=== PATIENT | female | born 1940 | race Caucasian/White ===

== ENCOUNTER 2017-07-29 02:17 | Inpatient (IN) | payer MEDICARE ==
[2017-07-29 03:21] LABS: ALT (SGPT) 39 U/L (8-55); AST (SGOT) 42 U/L (5-34); Albumin 3.8 g/dL (3.4-4.8); Alkaline Phosphatase 133 U/L (40-150); Anion Gap 12 mmol/L (10-20); BUN (Urea Nitrogen) 26 mg/dL (9.8-20.1); Bilirubin, Total 0.4 mg/dL (0.2-1.2); Calc. Creatinine Clearance 0 mL/min (70-130); Calcium 9.8 mg/dL (7.8-10.44); Carbon Dioxide 22 mmol/L (23-31); Chloride 107 mmol/L (98-107); Estimated GFR-MDRD 37; Globulin 3.9 g/dL (2.4-3.5); Glucose 176 mg/dL (83-110); Potassium 4.3 mmol/L (3.5-5.1); Protein, Total 7.7 g/dL (6.0-8.3); Sodium 137 mmol/L (136-145)
[2017-07-29 03:25] LABS: CKMB 2.4 ng/mL (0-6.6); Troponin I Less than 0.010 ng/mL (< 0.028)
[2017-07-29 03:30] LABS: Band 5 % (5-11); Hemoglobin 13.2 g/dL (12.0-16.0); Lymphocytes 8 % (21-51); MDiff Complete? YES; Mean Corpuscular Hemoglobin 32.8 pg (27.0-31.0); Mean Corpuscular Volume 96.4 fl (81.0-99.0); Mean Platelet Volume 7.2 fL (7.4-10.4); Monocytes 2 % (0-10); Neutrophil 85 % (42-75); PLT Morphology Comment Appears Adequate; Platelet Count 248 thou/uL (130-400); RBC Distribution Width 12.6 % (11.5-14.5); RBC Morphology Normal; Red Blood Cell (RBC) Count 4.01 mill/uL (4.20-5.40); White Blood Cell (WBC) Count 10.6 thou/uL (4.8-10.8)
[2017-07-29] MEDS ORDERED: Piperacillin/Tazobactam 4.5 GM VIAL ONE (03:55)
[2017-07-29] MEDS ORDERED: Furosemide 40 MG/4 ML VIAL ONE (03:55)
--- NOTE | 2017-07-29 06:11 | HP ---
DATE OF ADMISSION: 07/29/2017 PRIMARY CARE PROVIDER: Dr. Bassett out of [place], [place]. CHIEF COMPLAINT: Cough and shortness of breath. HISTORY OF PRESENT ILLNESS: This is a 77-year-old female who presents to [facility] Emergency Department, complaining of increased shortness of breath over the last 12 to 24 hours. The patient states she was recently admitted to [facility] in [place], diagnose d with pneumonia and treated for approximately 24 hours with IV antibiotics. The patient states she was discharged home with Augmentin and complained of increasing shortness of breath during that timef rame from discharge until the admission in the emergency room. The patient admits to difficulty lyin g flat, dry cough, no fever with a persistent cough. The patient denied any specific lower extremity swelling or weight gain and denies any known history of congestive heart failure. The patient does state she had a significant coronary history including myocardial infarction, coronary artery bypass grafting, atrial fibrillation, and undergoing a Watchman device and pacemaker placement in the past. The patient states she has been compliant with her medication regimen and takes aspirin and Plavix o n a daily basis. The patient consistently denies any chills, rigors, exposure history or family memb ers with similar symptoms. The patient denies any prior history of pneumonia. The patient admits to some difficulty taking a deep breath and feels like this will make her cough more. The patient cristian es any jaw or left arm discomfort. The patient denies any recent trauma, injury, nausea, vomiting, o r diarrhea. In the emergency room, the patient underwent general evaluation including chest imaging showing pulmonary edema and questionable infiltrate. The patient received IV Lasix 40 mg x1 dose as well as Levaquin 750 mg x1 and vancomycin 1 gram. The patient also received Zosyn 4.5 grams x1 dose. PAST MEDICAL HISTORY: 1. Coronary artery disease. 2. History of myocardial infarction. 3. History of TIAs. 4. History of intracranial hemorrhage. 5. Chronic atrial fibrillation with variable rate, status post pacemaker placement. 6. Hypothyroidism. 7. Diabetes mellitus type 2. 8. Hypertension. 9. Hyperlipidemia. PAST SURGICAL HISTORY: 1. Status post pacemaker placement. 2. Status post Watchman procedure. 3. Status post coronary artery bypass grafting. CURRENT MEDICATIONS: 1. Plavix 75 mg 1 tab p.o. daily. 2. Enteric-coated aspirin 81 mg 1 tab p.o. daily. 3. Glipizide 10 mg 1 tab p.o. daily. 4. Glargine insulin 15 units subcutaneously at bedtime. 5. Isosorbide mononitrate 30 mg p.o. daily. 6. Levothyroxine 75 mcg 1 tab p.o. daily. 7. Lisinopril 2.5 mg 1 tab p.o. daily. 8. Simvastatin 40 mg p.o. at bedtime. 9. Januvia 25 mg 1 tab p.o. daily. 10. Betapace 40 mg p.o. b.i.d. ALLERGIES: No known drug allergies. FAMILY HISTORY: Positive for hypertension and coronary artery disease. SOCIAL HISTORY: Patient is and resides near [place], [place]. Retired. Remote tobacco use, quitting in 2001. No alcohol or illicit drug use. Functional of all activities of daily living. REVIEW OF SYSTEMS: The following complete review of systems was negative, unless otherwise mentioned in the HPI or below: Constitutional: Weight loss or gain, ability to conduct usual activities. Sk in: Rash, itching. Eyes: Double vision, pain. ENT/Mouth: Nose bleeding, neck stiffness, pain, te nderness. Cardiovascular: Palpitations, dyspnea on exertion, orthopnea. Respiratory: Shortness of breath, wheezing, cough, hemoptysis, fever or night sweats. Gastrointestinal: Poor appetite, abdom inal pain, heartburn, nausea, vomiting, constipation, or diarrhea. Genitourinary: Urgency, frequenc y, dysuria, nocturia. Musculoskeletal: Pain, swelling. Neurologic/Psychiatric: Anxiety, depressio n. Allergy/Immunologic: Skin rash, bleeding tendency. PHYSICAL EXAMINATION: VITAL SIGNS: On admission, blood pressure 130/89, pulse 113, respiratory rate 22, temperature 97.4 d egrees Fahrenheit, O2 saturation 96% on 2 liters per minute by nasal cannula. GENERAL APPEARANCE: This is a 77-year-old female, alert and oriented x3, pleasant, respons felton, in no acute distress. HEENT: Pupils are equal, round, and reactive to light and accommodation. Extraocular muscles are in tact. No scleral icterus, no conjunctival injection. Nares patent. OP is clear. Teeth in good rep air. Oral mucosa dry. NECK: Supple. No cervical adenopathy, no thyromegaly, no carotid bruits, no JVD appreciated. Cervi yariel spine with full active and passive range of motion. No meningeal signs appreciated. CHEST: Crackles bilaterally in the basilar segments. Diminished airflow in the bases. CARDIOVASCULAR: S1, S2 with irregular rate and rhythm. Tachycardic. No murmur or rub noted. ABDOMEN: Rounded, soft, nontender, nondistended. Bowel sounds are positive in all four quadrants. No hepatosplenomegaly, no abdominal bruits, no rebound or guarding appreciated. EXTREMITIES: Warm and dry with fair turgor. No clubbing, cyanosis, or asymmetric edema appreciated. Pulses palpable distally at the dorsalis pedis, posterior tibial, and popliteal arteries bilaterall y. Capillary refill less than 2 seconds. NEUROLOGIC: Cranial nerves II through XII are grossly intact. No focal or lateralizing signs apprec iated. PERTINENT LABORATORY AND X-RAY FINDINGS: Sodium 137, potassium 4.3, chloride 107, CO2 of 22, BUN 26, creatinine 1.40, estimated GFR of 37, glucose 176. Lactic acid level 1.7, calcium 9.8, AST 42, ALT 39, alkaline phosphatase 133, troponin I negative x1. BNP 1875, albumin 3.8. CBC showed a white blo od cell count of 10.6, hemoglobin 13, hematocrit 39, platelet count 248,000 with 85% neutrophils. D- dimer 1.71. Portable chest x-ray dated 07/29/2017 shows bilateral pulmonary edema, right greater steph n left lung field. Pacemaker device noted in the left chest wall. Cardiomegaly noted. EKG dated by my interpretation shows atrial fibrillation with rapid ventricular response with heart ra erwin in the 110s. Attenuated R waves noted in the precordial leads. Left bundle-branch block pattern noted. Left axis deviation. ASSESSMENT AND PLAN: 1. Acute congestive heart failure. The patient will be admitted to the telemetry unit. Appears to be new onset heart failure. We will obtain 2D transthoracic echocardiogram for accurate ejection fra ction. Last 2D transthoracic echocardiogram in 08/2016 showing ejection fraction in the 40-45% range . We will consult Cardiology Service for evaluation. Check TSH and magnesium level. Continue Lasix 40 mg IV b.i.d. Repeat BNP in the a.m. 2. Acute hypoxic respiratory failure. Suspect secondarily to #1. Continue oxygen supplementation t o maintain O2 saturations greater than or equal to 90%. Continue diuretic therapy as outlined in #1. 3. Community-acquired pneumonia. Questionable diagnosis. Given the lack of fever and leukocytosis. We will continue Levaquin 500 mg IV q.24 hours. Continue to monitor clinical response. Suspect ma in presentation related to pulmonary edema and not an acute infectious process. 4. Chronic kidney disease, stage 3. Avoid nephrotoxic agents and contrast media. Serial creatinine monitoring. Hold lisinopril. 5. Atrial fibrillation with rapid ventricular response. We will resume patient's home medication re gimen to include metoprolol and Betapace. Consult Cardiology Service for further recommendations. P atient not deemed an appropriate anticoagulation candidate due to history of intracranial bleed. Con tinue aspirin and Plavix. Consider Cardizem intravenously if rapid ventricular response persists aft er resuming home medication regimen. 6. Prophylaxis. Sequential compression devices while in bed. Pepcid 20 mg p.o. b.i.d. 7. Code status is FULL. Surrogate medical decision maker is patient's spouse.
[2017-07-29] MEDS ORDERED: Acetaminophen 500 MG TAB PO PRN (07:11)
[2017-07-29] MEDS ORDERED: Ondansetron ODT 4 MG TAB PO PRN (07:11)
[2017-07-29] MEDS ORDERED: Dextrose 50% Abboject 50 ML SYRINGE SLOW IVP PRN (07:11)
[2017-07-29] MEDS ORDERED: HumaLOG 300 UNITS/3 ML VIAL SC PRN ×2 (07:11)
[2017-07-29] MEDS ORDERED: Dextrose 5% in Water 1,000 ML IV PRN (07:11)
[2017-07-29] MEDS ORDERED: cloNIDine 0.1 MG TAB PO PRN (07:11)
[2017-07-29] MEDS ORDERED: hydrALAZINE 20 MG/ML VIAL SLOW IVP PRN (07:11)
[2017-07-29] MEDS ORDERED: Ondansetron HCl/PF 4 MG/2 ML Vial IVP PRN (07:11)
[2017-07-29] MEDS ORDERED: Furosemide 40 MG/4 ML VIAL SLOW IVP SCH ×2 (07:45→14:00)
--- NOTE | 2017-07-29 08:56 | RAD ---
UPRIGHT PORTABLE CHEST 1 VIEW: HISTORY: A 77-year-old female with a history of dyspnea. FINDINGS: Postop midline sternotomy. Left ICD. Bilateral interstitial and alveolar parenchymal changes throug hout both lungs with bilateral pleural effusions greater on the right side. No cardiomegaly. IMPRESSION: Evidence of bilateral vascular congestion and bilateral linear interstitial parenchymal changes as we ll as some more confluent alveolar parenchymal changes in the right lung. Bilateral pleural effusion s. Certainly, bilateral pneumonia is a strong consideration, particularly on the right side. There may as well be some component of interstitial edema and congestive heart failure. Continue short-ter m followup. POS: OFF
[2017-07-29] MEDS: Famotidine 20 MG TAB PO SCH (09:57)
[2017-07-29] MEDS: Aspirin 81 mg Enteric Coated Tablet PO SCH (09:57)
[2017-07-29] MEDS ORDERED: Amiodarone 200 MG TAB PO SCH (16:45)
[2017-07-29] MEDS ORDERED: Digoxin 0.5 MG/2 ML AMP SLOW IVP SCH (20:30)
[2017-07-29] MEDS: Simvastatin 20 MG TAB PO SCH (20:32)
[2017-07-29] MEDS: Doxycycline 100 MG CAP PO SCH (20:32)
[2017-07-29] MEDS: Metoprolol Tartrate 25 MG TAB PO SCH (20:42)
[2017-07-29] MEDS ORDERED: cefTRIAXone\\ROCEPHIN 1 GM in Sodium Chloride 0.9% 100 ML IVPB SCH (21:00)
[2017-07-29] MEDS ORDERED: Amlodipine 5 MG TAB PO SCH (21:00)
[2017-07-29] MEDS ORDERED: cefTRIAXone\\ROCEPHIN 1 GM, Syringe 0.4 ML in Sterile Water 9.6 ML SLOW IVP SCH (21:00)
--- NOTE | 2017-07-29 23:26 | CON ---
DATE OF ADMISSION: 07/29/2017 DATE OF CONSULTATION: 07/29/2017 INDICATION FOR CONSULTATION: A 77-year-old female with what appears to be pneumonia, shortness of br eath, atrial fibrillation, history of coronary artery disease, status post pacemaker insertion, statu s post bypass surgery with a history of atrial fibrillation with rapid ventricular response, for what we have seen the patient this time. This is very unfortunate 77-year-old female who has had a long cardiac history. She suffered a myocardial infarction in 2001. She underwent bypass surgery also at that time at [facility] in [place]. Since that time, she has had a pacemaker insertion. Tita lai has had history of atrial fibrillation with rapid ventricular response. She has had 2 cardioversio ns. She has also had a Watchman device placed, but she has had no atrial fibrillation ablation that she is aware of. She does have hypertension and has been doing relatively well except that she recen tly has a pneumonia. She was in the hospital in [place] and was just released this past Saturday, but then on Saturday felt okay, but on Saturday, she started getting more short of breath and presented to the emergency room here and was admitted. She does have evidence of possible right-sided pneumonia e ither congestive heart failure symptoms or echocardiogram was performed today shows ejection fraction of 15% to 20% with severe mitral valve regurgitation. She apparently been told in the past that she did have a decrease in her ejection fraction and there had been some discussion about possibly proce eding with an ablation or an upgrade to either an AICD or a biventricular pacemaker. She has been fo llowed by boat operator in [place] rather closely. She denies any chest pain, although she takes a de ep breath. Her cardiac enzymes are unremarkable. She has been placed on antibiotics and is feeling somewhat better this evening. PAST MEDICAL HISTORY: Significant for, 1. Coronary artery disease and bypass surgery, history of myocardial infarction. She has had a hist ory of intracranial hemorrhage and she is unable to take other oral anticoagulation, but does take Pl avix. She has had TIAs. She has apparently history of chronic atrial fibrillation, but she has been released from [place], the last admission had been on amiodarone. It would be my suspicion that the re may be trying to load her with amiodarone and then try again to cardiovert her prior to proceeding with possible ablation of her atrial fibrillation. We will need to control the heart rate at this t luis. 2. Type 2 diabetes. 3. Hypothyroidism. 4. Hypertension. 5. Hyperlipidemia. PAST SURGICAL HISTORY: She has had bypass surgery. She has had pacemaker insertion. She has had a Watchman procedure placed in the left atrial appendage and she has had 2 cardioversions for her atria l fibrillation, both which occurred this year. She has had the pacemaker in for couple of years. ALLERGIES: None. MEDICATIONS: When she was discharged recently from [place] included Augmentin, amiodarone 200 mg a d ay, amlodipine 5 mg a day, aspirin 81 mg a day. She also was taking calcium and vitamin D as well as cetirizine or Zyrtec. She was taking Plavix 75 mg a day, glipizide 10 mg tablet for 24 hours, isoso rbide mononitrate 30 mg tablet, levothyroxine 75 mcg tablet, lisinopril 2.5 mg which she was not taki ng on a daily basis, metoprolol 25 mg b.i.d., simvastatin 40 mg a day. She was also on insulin. ALLERGIES: None. SOCIAL HISTORY: She is . She still lives with her . She is able to do her daily hous ework. She smoked in the past, was stopped at the time of myocardial infarction. She smoked up to a pack a day for over 20 years. She has no alcohol use. REVIEW OF SYSTEMS: A 12-point review of systems is unremarkable except what was noted in the history of present illness. She is able to ambulate quite well and do more things at home without too much distress or significant shortness of breath until just recently when she developed pneumonia. PHYSICAL EXAMINATION: GENERAL: Reveals an elderly female. VITAL SIGNS: Her blood pressure is 101/74, has been as low as 86/69. She is afebrile. Heart rate i s still in the 120s, respiratory rate 16, O2 saturation 96%. HEENT: Shows head to be normocephalic and atraumatic. Carotid pulses are present. I did not hear a ny bruits. There are no obvious JVD. CHEST: Has decreased breath sounds at the left middle area with some decreased resonance to ausculta tion. Also few rales noted on the right base. Also has a well-healed surgical incision on the pacem johan site underneath the left infraclavicular area. CARDIOVASCULAR: Reveals an irregular rhythm, tachycardic. I did not hear any gross murmurs. ABDOMEN: Soft and nontender. Positive bowel sounds are present. EXTREMITIES: Showed no clubbing or cyanosis. She has decreased pedal pulses. I could not palpate, also had decreased popliteal pulses. She does have femoral pulses, however. NEUROLOGIC: She appears to be grossly intact. SKIN: Warm and dry. IMAGING AND LABORATORY DATA: Her EKG shows atrial fibrillation with rapid ventricular response. She also has a left bundle branch block. The original EKG shows evidence of possible sinus rhythm on on e of her EKGs appears to have a flutter formation, most likely rapid ventricular response is due to f lutter, most of the tracings in the chart do indicate that the patient has underlying atrial flutter rather than atrial fibrillation. We will ask the social and human services assistant to evaluate this. Her laborato ry data shows WBC of 10.6, hemoglobin 13.2. Creatinine is 1.4, potassium 4.3. Her BNP was 1875. Ca rdiac enzymes are unremarkable. IMPRESSION AND PLAN: 1. Atrial fibrillation with rapid ventricular response, which appears actually now to have converted to atrial flutter with rapid ventricular response, we will need to slow the rate now, we will add vick dwyer. We will ask the social and human services assistant to see the patient in consultation. 2. History of coronary artery disease, myocardial infarction and bypass surgery in 2001. She has re mained stable. As far she can recall, she has had no further cardiac catheterization in the past aft er her bypass surgery. She has a history of type 2 diabetes, which is under reasonable control at th is time. She has a history of hypertension. This is also in good control. If she is at the low steve e, we may need to adjust the medications, recently cut down the Imdur. 3. History of hyperlipidemia, history of transient ischemic attacks and history of pacemaker inserti on, which apparently remained stable. I am uncertain as to the type and kind of pacemaker that she h as, it appears that may be a [employer] device. At this time, my main objective is to slow the heart rate down and to prevent further decrease in left ventricular systolic function. Her ejection fracti on was 15% to 20% by echocardiogram today with severe mitral valve regurgitation. There may be in th e best interest of the patient to proceed with ablation of the atrial flutter to see if we can better control the heart rate.
[2017-07-30] MEDS: Digoxin 0.5 MG/2 ML AMP SLOW IVP SCH ×2 (02:58→08:47)
[2017-07-30] MEDS: Levothyroxine Sodium 75 MCG TAB PO SCH (05:33)
[2017-07-30 05:56] LABS: Anion Gap 16 mmol/L (10-20); BUN (Urea Nitrogen) 29 mg/dL (9.8-20.1); Calc. Creatinine Clearance 36 mL/min (70-130); Carbon Dioxide 22 mmol/L (23-31); Chloride 106 mmol/L (98-107); Estimated GFR-MDRD 35; Glucose 106 mg/dL (83-110); Magnesium 1.8 mg/dL (1.6-2.6); Phosphorus 3.6 mg/dL (2.3-4.7); Potassium 3.5 mmol/L (3.5-5.1); Sodium 140 mmol/L (136-145)
[2017-07-30 06:02] LABS: Band 4 % (5-11); Eosinophils 2 % (0-10); Hemoglobin 12.2 g/dL (12.0-16.0); Lymphocytes 16 % (21-51); MDiff Complete? YES; Mean Corpuscular HGB CONC 32.6 g/dL (32.0-36.0); Mean Corpuscular Hemoglobin 31.3 pg (27.0-31.0); Mean Corpuscular Volume 95.9 fl (81.0-99.0); Mean Platelet Volume 7.2 fL (7.4-10.4); Monocytes 3 % (0-10); Neutrophil 75 % (42-75); PLT Morphology Comment Appears Adequate; Platelet Count 241 thou/uL (130-400); RBC Distribution Width 12.7 % (11.5-14.5); Red Blood Cell (RBC) Count 3.89 mill/uL (4.20-5.40)
--- NOTE | 2017-07-30 08:19 | RAD ---
PA AND LATERAL VIEWS CHEST: History: Pneumonia. CHF follow up. FINDINGS/IMPRESSION: Comparison is made with the exam of previous day. There are changes in median sternotomy. Left sided pacemaker device remains in place. The heart size is borderline. There has been interval improvement in the pulmonary vascular congestion since the previous day's exam. No lobar consolidation or pneumot horaces, or large effusions are identified. POS: MIC
[2017-07-30] MEDS: Clopidogrel Bisulfate 75 MG TAB PO SCH (08:46)
[2017-07-30] MEDS: Aspirin 81 mg Enteric Coated Tablet PO SCH (08:46)
[2017-07-30] MEDS: Doxycycline 100 MG CAP PO SCH ×2 (08:46→21:17)
[2017-07-30] MEDS: Metoprolol Tartrate 25 MG TAB PO SCH ×2 (08:47→21:14)
[2017-07-30] MEDS: Famotidine 20 MG TAB PO SCH (08:47)
[2017-07-30] MEDS: Amiodarone 200 MG TAB PO SCH (08:47)
[2017-07-30] MEDS ORDERED: Prevnar 13-Val Conj/PF 0.5 ML SYRINGE IM ONE (09:00)
--- NOTE | 2017-07-30 16:40 | CON ---
DATE OF CONSULTATION: 07/30/2017 This is IVETT Duval, dictating as scribe for Chris Echevarria M.D. REFERRING PHYSICIAN: Danya Castro M.D. REASON FOR CONSULTATION: Atrial arrhythmias and severely reduced EF of 15% to 20%. HISTORY OF PRESENT ILLNESS: Ms. Castellanos is a 77-year-old female, who presented to the emergency room on 07/29/2017 with shortness of breath. She has past medical history significant for recent pneumonia; atrial arrhythmias; coronary artery disease with prior bypass, inclusion of dual-chamber pacemaker; as well as intracranial hemorrhage. She regularly follows with Dr. Andrea Moreno, an Electrophysiology doctor out of [facility]. Ms. Castellanos recently discharged from [facility] this past Saturday for diagnosis of pneumonia. She was hospitalized there for approximately 2 days and was discharged on antibiotics. Two days later, on Saturday, she began to experience increasing shortness of breath and presented to the emergency room here and was admitted for pneumonia versus congestive heart failure. An echocardiogram was done revealing a severely reduced ejection fraction of 15% to 20% with severe mitral valve regurgitation. Prior ultrasound in 08/2016 here, she had an EF of 40% to 45%. That being said, she reports that she has been told she has a weak heart and has an appointment with Dr. Moreno to discuss either upgrading to a BiV or BiV ICD versus ablation. She is uncertain about details and has somewhat difficult time recalling her medical history given her prior stroke. She reports that her [id number] often accompanies for her appointments as she remembers things better. Today, Ms. Castellanos reports that she is feeling fairly well, but continues to have a cough and feels weak. She denies any severe heart racing or palpitations , but does report occasionally feeling a fluttering sensation. She believes that she was recently started on amiodarone and her prescription bottle is dated 05/31/2017. Also, she has had a Watchman device placed to close her left atrial appendage by her doctor in [place] sometime in the past. She underwent a cardioversion for atrial fibrillation in May and June of this year, both initially restoring sinus rhythm, but only lasting 2-3 days. Ms. Castellanos denies any stroke or stroke-like symptoms. She endorses some heart failure symptoms including fullness sensation in her abdomen as well as progressive shortness of breath, but denies swelling of the extremities. She is rather reluctant to discuss any procedures well here and greatly prefers remaining in Dr. Moreno's service for as much as possible and is safe for her. PAST MEDICAL HISTORY: 1. Atrial fibrillation with rapid ventricular response with two failed cardioversions this year, now on amiodarone. 2. Atrial flutter. 3. Left atrial appendage closure with a Watchman. 4. Intracranial hemorrhage. 5. Coronary artery disease with prior bypass and myocardial infarction. 6. Inclusion of a dual chamber pacemaker, Medtronic device. 7. Type 2 diabetes. 8. Hypothyroidism. 9. Hypertension. 10. Hyperlipidemia. ALLERGIES: None. HOME MEDICATIONS: Include Augmentin, amiodarone 200 mg daily, amlodipine 5 mg daily, aspirin 81 mg daily, calcium with vitamin D daily, cetirizine daily, Plavix 75 mg daily, glipizide 10 mg daily, Imdur 30 mg daily, levothyroxine 75 mcg daily, lisinopril 2.5 mg, metoprolol 25 mg b.i.d., simvastatin 40 mg daily, and insulin. SOCIAL HISTORY: , lives with her , independent with ADLs. Remote history of tobacco use, quit at the time of her SC, but does have a 20- pack-year history. Negative for alcohol or illicit drug use. FAMILY HISTORY: Negative for sudden cardiac , arrhythmias or early onset of coronary artery disease to the best of her memory. REVIEW OF SYSTEMS: A 12-point review of systems is conducted and is negative except that listed in the HPI. Positive for significant shortness of breath, dyspnea on exertion, and progressive fatigue, as well as tightness in the abdomen and her abdominal distention. PHYSICAL EXAMINATION: VITAL SIGNS: Most recent vital signs, 5 feet 7 inches, 154 pounds, BMI is 24.1 , temperature 98.6, pulse 82, respirations 24, oxygen saturation 94% on room air , blood pressure 117/81. GENERAL: This is an elderly female, in no acute distress. HEENT: She is normocephalic, atraumatic. Her sclerae are anicteric. EOMs are intact. She does appear to be somewhat of a poor historian and with questionable memory of recent medical events. Oral mucosa is moist and pink with adequate dentition. NECK: Supple without jugular venous distention. LUNGS: Sounds are coarse with bibasilar crackles. Respirations are even and unlabored at rest. Her device is palpable at the left infraclavicular fossa without swelling, bruising, erosion or drainage. CARDIOVASCULAR: Her heart rate is irregular and rapid. EXTREMITIES: Warm and dry to touch without clubbing, cyanosis or edema. ABDOMEN: Soft and nontender without palpable masses and there are positive bowel sounds throughout. NEUROLOGIC: Grossly intact and nonfocal. Her gait was not assessed. DATABASE: EKG and telemetry strips were all personally reviewed and reveals atrial flutter with RVR, rates initially sustaining between 100 and 130, now slightly better rate control in the low 100s, occasional V-pacing. LABORATORY DATA: From 07/30/2017: WBC 8.0, hemoglobin 12.2, hematocrit 37.3, platelet count 241. Chemistry from 07/30/2017: Sodium 140, potassium 3.5, chloride 106, carbon dioxide 22, BUN 29, creatinine 1.47, magnesium 1.8. TSH is 15. Chest x-ray on 07/30/2017 shows some improvement in the pulmonary vascular congestion since the previous day's exam. No lobar consolidation, pneumothoraces or large effusions identified. Echocardiogram from 07/29/2017, EF 15% to 20%, diastolic dysfunction, LV appears dilated, global hypokinesis, severe mitral regurgitation. DEVICE CHECK: The patient has a dual chamber Medtronic Advisa DR MRI compatible device, date of implant is 12/22/2015. Battery voltage is 3.01 volts with longevity estimated at 7 years. Atrial lead is Medtronic 5076. Lead impedance is 456 ohms and capture threshold 0.375 volts at 0.4 milliseconds. RV lead is Medtronic 5076. The impedance is 475 ohms, capture threshold is 0.625 volts at 0.4 milliseconds. P-wave is 2.3 millivolts and R- wave is 13.9 millivolts. Current mode is AAIR/DDDR with lower rate limit of 60 beats per minute. No ventricular arrhythmias detected. Atrial fibrillation burden is 87.4%. The longest episode is being 16 days. Atrial therapies are on with 0% success. Cardiac Compass reveals a substantial increase in atrial arrhythmia burden since mid to late 05/2017. There is a brief bahai of sinus rhythm, which correlates at the time of attempted cardioversion, but then suggests persistent atrial fibrillation or atrial arrhythmia since that time. AP 31% and COMMUNICATIONS SUPERINTENDENT 2.2%. IMPRESSION: 1. Acute respiratory failure. 2. Atrial flutter with rapid ventricular response. 3. History of atrial arrhythmias, on amiodarone. 4. History of left atrial appendage closure with a Lariot procedure, secondary to history of intracranial hemorrhage and not a candidate for oral anticoagulation. 5. Congestive heart failure with worsening left ventricular ejection fraction, ischemic cardiomyopathy with prior coronary artery bypass and myocardial infarction. PLAN: A long discussion was had with Ms. Castellanos ascertaining her past medical history and how to move forward given her newly found cardiomyopathy. I have requested records be obtained from Dr. Moreno, her EP doctor, in [place] to better understand her medical history and what the plan was for her moving forward. That being said, it is likely that Ms. Castellanos will require an atrial flutter possibly AV eric ablation after she is stabilized. We will consider upgrading her current dual-chamber pacemaker to a BiV pacemaker. We agree with Cardiology's plan for rate control at this time. The patient has a long history with Dr. Moreno and would like to defer to his judgment before any procedures are done or at least that they be run by him. We have requested records from his office as well as from her recent stay at [facility]. Thank you for allowing us to participate in the care of this patient. We will continue to follow with her hospitalization and make recommendations as events unfold. In the meantime, continue rate control and medical stabilization before moving forward with any procedures. JUSTIN
[2017-07-30] MEDS ORDERED: Polyethylene Glycol 3350 17 GM Packet PO PRN (20:59)
--- NOTE | 2017-07-30 20:59 | PDOC.PN ---
- Subjective Encounter Start Date: 07/30/17 Encounter Start Time: 18:00 Patient seen and examined. No new complaints. No overnight events. Intermittent palpitation. SOB improving. No CP. - Objective Resuscitation Status: Resuscitation Status FULL:Full Resuscitation MAR Reviewed: Yes Vital Signs & Weight: Vital Signs (12 hours) Temp Pulse Pulse Pulse Resp BP BP 07/30/17 16:00 97.6 F 84 18 07/30/17 13:15 07/30/17 12:00 98.6 F 82 22 H 07/30/17 09:41 112 H 108 H 98/70 110/75 BP BP Pulse Ox 07/30/17 16:00 107/71 97 07/30/17 13:15 117/81 07/30/17 12:00 83/64 L 94 L 07/30/17 09:41 Weight Weight 154 lb I&O: 07/29/17 07/30/17 07/31/17 06:59 06:59 06:59 Intake Total 555 450 Output Total 2950 Balance -2395 450 Result Diagrams: 07/30/17 05:19 07/30/17 05:19 Additional Labs: Accuchecks 07/30/17 07/30/17 07/30/17 17:05 11:08 05:37 POC Glucose 73 103 92 07/29/17 20:33 POC Glucose 183 H Radiology Reviewed by me: Yes (CXR - no infiltrate) EKG Reviewed by me: Yes (Tele A flutter) Phys Exam - Physical Examination Constitutional: NAD HEENT: PERRLA, moist MMs Respiratory: no wheezing, no rales Scat rhonchi, Symmetrical Cardiovascular: no rub, irregular no heaves/pulsations Gastrointestinal: soft, non-tender, no distention, positive bowel sounds Musculoskeletal: pulses present, edema present (trace) Neurological: non-focal, normal sensation, moves all 4 limbs Psychiatric: normal affect, A&O x 3 Skin: no rash Dx/Plan - Plan plan discussed w/ family, respiratory therapy, DVT proph w/SCDs IMPRESSION: 1. Acute hypoxic respiratory failure due to Acute on chronic systolic heart failure exacerbation 2. Atrial flutter with RVR 3. CAD s/p NV/CABG 4. HTN 5. DM2 / CKD 3/ Other issues per H&P PLAN: * DC IV Ceftriaxone (Pneumonia ruled out) * Cont rate control per Cardiology * AM labs * DC Lasix * EP input appreciated * Cont to monitor Review of Systems - Review of Systems Respiratory: negative: Cough, Dry, Shortness of Breath, Hemoptysis, SOB with Excertion, Pleuritic Pain, Sputum, Wheezing Gastrointestinal: negative: Nausea, Vomiting, Abdominal Pain, Diarrhea, Constipation, Melena, Hematochezia, Other - Medications/Allergies Allergies/Adverse Reactions: Allergies Allergy/AdvReac Type Severity Reaction Status Date / Time dabigatran etexilate Allergy Verified 07/29/17 09:35 [From Pradaxa] Medications: Current Medications Acetaminophen (Tylenol) 1,000 mg PO Q6H PRN PRN Reason: Headache/Fever or Mild Pain Amiodarone HCl (Cordarone) 200 mg PO DAILY [facility] Last Admin: 07/30/17 08:47 Dose: 200 mg Aspirin (Ecotrin) 81 mg PO DAILY [facility] Last Admin: 07/30/17 08:46 Dose: 81 mg Clonidine (Catapres) 0.1 mg PO Q4H PRN PRN Reason: Systolic BP > 180 Clopidogrel Bisulfate (Plavix) 75 mg PO DAILY [facility] Last Admin: 07/30/17 08:46 Dose: 75 mg Dextrose/Water (Dextrose 50%) 25 gm SLOW IVP PRN PRN PRN Reason: Hypoglycemia Digoxin (Lanoxin) 0.125 mg PO DAILY [facility] Diltiazem HCl (Cardizem) 30 mg PO Q6H PRN PRN Reason: HR >120 sustained Doxycycline Hyclate (Vibramycin) 100 mg PO BID [facility] Last Admin: 07/30/17 08:46 Dose: 100 mg Famotidine (Pepcid) 20 mg PO DAILY [facility] Last Admin: 07/30/17 08:47 Dose: 20 mg Glucagon (Glucagon) 1 mg IM PRN PRN PRN Reason: Hypoglycemia Hydralazine HCl (Apresoline) 10 mg SLOW IVP Q4H PRN PRN Reason: Systolic BP > 180 Dextrose/Water (D5w) 1,000 mls @ 0 mls/hr IV .Q0M PRN; As Directed PRN Reason: Hypoglycemia Insulin Human Lispro (Humalog) 0 units SC .MILD SLIDING SCALE PRN PRN Reason: Mild Correctional Scale Insulin Human Lispro (Humalog) 0 units SC .BEDTIME SLIDING SC PRN PRN Reason: Bedtime Correctional Scale Isosorbide Mononitrate (Imdur Er) 30 mg PO DAILY [facility] Last Admin: 07/30/17 08:47 Dose: 30 mg Levothyroxine Sodium (Synthroid) 75 mcg PO 0600 [facility] Last Admin: 07/30/17 05:33 Dose: 75 mcg Metoprolol Tartrate (Lopressor) 25 mg PO BID [facility] Last Admin: 07/30/17 08:47 Dose: 25 mg Ondansetron HCl (Zofran Odt) 4 mg PO Q6H PRN PRN Reason: Nausea/Vomiting Ondansetron HCl (Zofran) 4 mg IVP Q6H PRN PRN Reason: Nausea/Vomiting Simvastatin (Zocor) 20 mg PO HS [facility] Last Admin: 07/29/17 20:32 Dose: 20 mg
[2017-07-30] MEDS: Simvastatin 20 MG TAB PO SCH (21:17)
[2017-07-31 05:51] VITALS: BMI 23.3
[2017-07-31 06:10] LABS: #Eosinphils 0.4 thou/uL (0.0-0.7); #Lymphocytes 0.7 thou/uL (1.20-3.40); #Monocytes 0.4 thou/uL (0.11-0.59); #Neutrophils 5.9 thou/uL (1.40-6.50); %Basophils 0.7 % (0.0-1.0); %Eosinophils 5.1 % (0.0-10.0); %Lymphocytes 9.9 % (21.0-51.0); %Monocytes 5.2 % (0.0-10.0); %Neutrophils 79.1 % (42.0-75.0); Hemoglobin 12.4 g/dL (12.0-16.0); Mean Corpuscular HGB CONC 32.2 g/dL (32.0-36.0); Mean Corpuscular Hemoglobin 30.9 pg (27.0-31.0); Mean Corpuscular Volume 95.9 fl (81.0-99.0); Mean Platelet Volume 7.6 fL (7.4-10.4); Platelet Count 245 thou/uL (130-400); RBC Distribution Width 12.8 % (11.5-14.5); Red Blood Cell (RBC) Count 4.01 mill/uL (4.20-5.40); White Blood Cell (WBC) Count 7.4 thou/uL (4.8-10.8)
[2017-07-31 06:17] LABS: ALT (SGPT) 18 U/L (8-55); AST (SGOT) 19 U/L (5-34); Albumin 3.5 g/dL (3.4-4.8); Alkaline Phosphatase 96 U/L (40-150); Anion Gap 12 mmol/L (10-20); BUN (Urea Nitrogen) 31 mg/dL (9.8-20.1); Bilirubin, Total 0.4 mg/dL (0.2-1.2); Calc. Creatinine Clearance 34 mL/min (70-130); Calcium 9.5 mg/dL (7.8-10.44); Carbon Dioxide 25 mmol/L (23-31); Chloride 104 mmol/L (98-107); Estimated GFR-MDRD 34; Globulin 3.8 g/dL (2.4-3.5); Glucose 102 mg/dL (83-110); Magnesium 1.7 mg/dL (1.6-2.6); Potassium 3.7 mmol/L (3.5-5.1); Protein, Total 7.3 g/dL (6.0-8.3); Sodium 137 mmol/L (136-145)
[2017-07-31] MEDS: Levothyroxine Sodium 75 MCG TAB PO SCH (06:22)
[2017-07-31] MEDS ORDERED: Digoxin 0.125 MG TAB PO SCH (09:00)
[2017-07-31] MEDS: Amiodarone 200 MG TAB PO SCH (09:25)
[2017-07-31] MEDS: Aspirin 81 mg Enteric Coated Tablet PO SCH (09:25)
[2017-07-31] MEDS: Clopidogrel Bisulfate 75 MG TAB PO SCH (09:26)
[2017-07-31] MEDS: Famotidine 20 MG TAB PO SCH (09:26)
[2017-07-31] MEDS: Doxycycline 100 MG CAP PO SCH ×2 (09:26→20:41)
[2017-07-31] MEDS: Metoprolol Tartrate 25 MG TAB PO SCH ×2 (09:27→20:42)
--- NOTE | 2017-07-31 14:44 | PDOC.CTH ---
<Debbie Calderón - Last Filed: 07/31/17 14:30> Cardiology Progress Note - Subjective Patient seen and evaluated. No new cardiac concerns or complaints. - Objective Vital Signs Temp Pulse Resp BP BP BP BP 07/31/17 11:30 97.7 F 119 H 18 96/71 07/31/17 09:26 117 H 07/31/17 08:11 98.0 F 117 H 20 135/85 07/31/17 08:00 98.0 F 117 H 20 07/31/17 05:00 98.4 F 87 16 112/66 114/66 118/68 07/31/17 04:00 98.4 F 87 16 114/66 Pulse Ox 07/31/17 11:30 98 07/31/17 09:26 07/31/17 08:11 97 07/31/17 08:00 97 07/31/17 05:00 94 L 07/31/17 04:00 94 L Weight 148 lb 9.6 oz 07/30/17 07/31/17 08/01/17 06:59 06:59 06:59 Intake Total 555 1300 Output Total 2950 Balance -2395 1300 - Physical Examination General/Neuro: alert & oriented x3, NAD Neck: carotid US brisk, no JVD present Lungs: unlabored respirations Abdomen: NT/ND, soft - Telemetry Telemetry Rhythm: Atrial flutter with RVR - Labs Result Diagrams: 07/31/17 05:35 07/31/17 05:35 Troponin/CKMB CK-MB (CK-2) 2.4 ng/mL (0-6.6) 07/29/17 02:54 Troponin I Less than 0.010 ng/mL (< 0.028) 07/29/17 02:54 - Assessment/Plan 1. Atrial flutter with RVR, rates remain 110-130. Currently on Amiodarone 200mg QD, Metoprolol 25mg BID, and Digoxin 0.125mg QD. Will increase Metoprolol to 50mg BID- hold if SBP <90 or HR <60. 2. A/C systolic congestive heart failure, continues to diurese. Less shortness of breath and better compensated. 3. Ischemic cardiomyopathy-LVEF 15-20%, previously 40-45% in August 2016. Likely tachycardia mediated. Recommend repeat evaluation of EF in 2 months once rate control is achieved. 4. History of ICH, OAC contraindicated and MEREDITH closed with Watchman in the past. No OAC needed for atrial arrhythmias but also not a candidate for PVAI as she is at risk for repeat ICH. A long discussion was again had with the patient. Records from Dr Moreno (EP [facility]) office. Her rate is not well controlled despite increasing oral agents. She will need DCCV at minimum. Dr Echevarria has offered CTI ablation for her flutter, upgrading to Bi-V PPM, and even AV node ablation, which has previously been discussed with Rivera Emanuel by her EP doctor. She is considering her options as she would like to have Dr Moreno do any procedures she needs. That being said, she will need something done to stabilize her before she will be able to discharge. We are happy to help with any of the above options as described. We will keep her NPO tomorrow for potential procedure tomorrow, be it DCCV, ablation, or upgrade to Bi-V PPM if patient is agreeable. <Chris Echevarria - Last Filed: 07/31/17 15:43> Cardiology Progress Note - Objective Vital Signs Temp Pulse Pulse Pulse Resp BP BP 07/31/17 11:30 97.7 F 119 H 86 82 18 108/69 114/78 07/31/17 09:26 117 H 07/31/17 08:11 98.0 F 117 H 20 07/31/17 08:00 98.0 F 117 H 20 07/31/17 05:00 98.4 F 87 16 07/31/17 04:00 98.4 F 87 16 BP BP BP BP Pulse Ox 07/31/17 11:30 96/71 98 07/31/17 09:26 07/31/17 08:11 135/85 97 07/31/17 08:00 97 07/31/17 05:00 112/66 114/66 118/68 94 L 07/31/17 04:00 114/66 94 L Weight 148 lb 9.6 oz 07/30/17 07/31/17 08/01/17 06:59 06:59 06:59 Intake Total 555 1300 Output Total 2950 Balance -2395 1300 - Labs Result Diagrams: 07/31/17 05:35 07/31/17 05:35 Troponin/CKMB CK-MB (CK-2) 2.4 ng/mL (0-6.6) 07/29/17 02:54 Troponin I Less than 0.010 ng/mL (< 0.028) 07/29/17 02:54 Attending Addendum - Attending Addendum Date/Time: 07/31/17 3521 I personally evaluated the patient and discussed the management with Ms Calderón. I agree with the History, Examination, Assessment and Plan documented above with any addition or exceptions noted below.
[2017-07-31] MEDS ORDERED: Metoprolol Tartrate 25 MG TAB PO SCH (14:52)
[2017-07-31] MEDS: Simvastatin 20 MG TAB PO SCH (20:42)
--- NOTE | 2017-07-31 20:58 | PDOC.PN ---
- Subjective Encounter Start Date: 07/31/17 Encounter Start Time: 10:30 Patient seen and examined. No new complaints. No overnight events. No new CP/SOB - Objective Resuscitation Status: Resuscitation Status FULL:Full Resuscitation MAR Reviewed: Yes Vital Signs & Weight: Vital Signs (12 hours) Temp Pulse Pulse Pulse Resp BP BP 07/31/17 20:00 07/31/17 19:06 97.9 F 108 H 16 07/31/17 16:00 97.7 F 107 H 18 07/31/17 11:30 97.7 F 119 H 86 82 18 108/69 114/78 07/31/17 09:26 117 H BP Pulse Ox 07/31/17 20:00 115/70 07/31/17 19:06 111/67 99 07/31/17 16:00 114/84 92 L 07/31/17 11:30 96/71 98 07/31/17 09:26 Weight Weight 148 lb 9.6 oz I&O: 07/30/17 07/31/17 08/01/17 06:59 06:59 06:59 Intake Total 555 1300 580 Output Total 2950 Balance -2395 1300 580 Result Diagrams: 07/31/17 05:35 07/31/17 05:35 Additional Labs: Accuchecks 07/31/17 07/31/17 07/31/17 16:53 11:16 06:17 POC Glucose 106 94 92 07/30/17 21:23 POC Glucose 98 EKG Reviewed by me: Yes (Tele A flutter) Phys Exam - Physical Examination Constitutional: NAD Respiratory: no wheezing, no rhonchi Cardiovascular: no rub, irregular Gastrointestinal: soft, non-tender, positive bowel sounds Musculoskeletal: no edema Neurological: moves all 4 limbs Dx/Plan - Plan plan discussed w/ family, DVT proph w/SCDs IMPRESSION: 1. Acute hypoxic respiratory failure due to Acute on chronic systolic heart failure exacerbation - improving 2. Atrial flutter with RVR - EP/Cardio following 3. CAD s/p DC/CABG 4. HTN 5. DM2 /CKD 3/ Other issues per H&P PLAN: * Cont rate control * Records from Dr Moreno reviewed * Cont to monitor * Patient will d/w family regarding CV vs Ablation * Cont current meds as below Review of Systems - Review of Systems Respiratory: negative: Cough, Dry, Shortness of Breath, Hemoptysis, SOB with Excertion, Pleuritic Pain, Sputum, Wheezing Cardiovascular: negative: chest pain, palpitations, orthopnea, paroxysmal nocturnal dyspnea, edema, light headedness, other - Medications/Allergies Allergies/Adverse Reactions: Allergies Allergy/AdvReac Type Severity Reaction Status Date / Time dabigatran etexilate Allergy Verified 07/29/17 09:35 [From Pradaxa] Medications: Current Medications Acetaminophen (Tylenol) 1,000 mg PO Q6H PRN PRN Reason: Headache/Fever or Mild Pain Amiodarone HCl (Cordarone) 200 mg PO DAILY [facility] Last Admin: 07/31/17 09:25 Dose: 200 mg Aspirin (Ecotrin) 81 mg PO DAILY [facility] Last Admin: 07/31/17 09:25 Dose: 81 mg Clonidine (Catapres) 0.1 mg PO Q4H PRN PRN Reason: Systolic BP > 180 Clopidogrel Bisulfate (Plavix) 75 mg PO DAILY [facility] Last Admin: 07/31/17 09:26 Dose: 75 mg Dextrose/Water (Dextrose 50%) 25 gm SLOW IVP PRN PRN PRN Reason: Hypoglycemia Digoxin (Lanoxin) 0.125 mg PO DAILY [facility] Last Admin: 07/31/17 09:26 Dose: 0.125 mg Diltiazem HCl (Cardizem) 30 mg PO Q6H PRN PRN Reason: HR >120 sustained Doxycycline Hyclate (Vibramycin) 100 mg PO BID [facility] Last Admin: 07/31/17 20:41 Dose: 100 mg Famotidine (Pepcid) 20 mg PO DAILY [facility] Last Admin: 07/31/17 09:26 Dose: 20 mg Glucagon (Glucagon) 1 mg IM PRN PRN PRN Reason: Hypoglycemia Hydralazine HCl (Apresoline) 10 mg SLOW IVP Q4H PRN PRN Reason: Systolic BP > 180 Dextrose/Water (D5w) 1,000 mls @ 0 mls/hr IV .Q0M PRN; As Directed PRN Reason: Hypoglycemia Insulin Human Lispro (Humalog) 0 units SC .MILD SLIDING SCALE PRN PRN Reason: Mild Correctional Scale Insulin Human Lispro (Humalog) 0 units SC .BEDTIME SLIDING SC PRN PRN Reason: Bedtime Correctional Scale Isosorbide Mononitrate (Imdur Er) 30 mg PO DAILY [facility] Last Admin: 07/31/17 09:27 Dose: 30 mg Levothyroxine Sodium (Synthroid) 75 mcg PO 0600 [facility] Last Admin: 07/31/17 06:22 Dose: 75 mcg Metoprolol Tartrate (Lopressor) 50 mg PO BID [facility] Last Admin: 07/31/17 20:42 Dose: 50 mg Ondansetron HCl (Zofran Odt) 4 mg PO Q6H PRN PRN Reason: Nausea/Vomiting Ondansetron HCl (Zofran) 4 mg IVP Q6H PRN PRN Reason: Nausea/Vomiting Polyethylene Glycol (Miralax) 17 gm PO DAILY PRN PRN Reason: Constipation Simvastatin (Zocor) 20 mg PO HS [facility] Last Admin: 07/31/17 20:42 Dose: 20 mg Sodium Chloride (Flush - Normal Saline) 10 ml IVF Q12HR [facility] Last Admin: 07/31/17 20:42 Dose: 10 ml Sodium Chloride (Flush - Normal Saline) 10 ml IVF PRN PRN PRN Reason: Saline Flush
[2017-08-01] MEDS: Levothyroxine Sodium 75 MCG TAB PO SCH (05:21)
[2017-08-01] MEDS ORDERED: PROPOFOL 20 ML ONE (08:10)
[2017-08-01] MEDS ORDERED: Ondansetron HCl/PF 4 MG/2 ML Vial IVP PRN (08:49)
[2017-08-01] MEDS ORDERED: Morphine Sulfate 2 MG/ML SYRINGE SLOW IVP PRN ×2 (08:49→17:52)
[2017-08-01] MEDS ORDERED: Promethazine HCl 25 MG/ML VIAL SLOW IVP PRN (08:49)
--- NOTE | 2017-08-01 11:11 | PRG ---
DATE OF SERVICE: 08/01/2017 ELECTROPHYSIOLOGY NOTE SUBJECTIVE: Ms. Castellanos seems to be doing better. She is after a cardioversion with Dr. Castro today. She is currently not having any orthopnea. Denies chest pain, no fever, chills or cough. No stroke-like symptoms. OBJECTIVE: VITAL SIGNS: Blood pressure is 122/70, heart rate 60, respirations 16, temperature 97.6 degrees Fahrenheit. GENERAL: Alert and oriented woman in no apparent distress. NECK: Supple. Jugular veins not distended. CHEST: Coarse without crackles or wheezes. CARDIOVASCULAR: Heart sounds are regular to rate and rhythm. No murmur or gallop. The left precordial pacing insertion site is well healed. ABDOMEN: Benign. Bowel sounds positive. EXTREMITIES: Lower extremities without edema, clubbing or cyanosis. DATABASE: No new labs since yesterday. The telemetry strips revealed atrial flutter, but now sinus rhythm after cardioversion. ASSESSMENT AND PLAN: Ms. Castellanos is a pleasant 77-year-old woman with progressive worsening left ventricular function and repeat hospitalizations with atrial flutter/fibrillation with rapid rates as well as heart failure exacerbations. She was again stabilized with diuresis and continued amiodarone administration. She seems to be doing fair right now, but there is a good possibility that the atrial flutter recurs, which she seemed to tolerate very poorly and likely contributes to her congestive heart failure exacerbation. Hence, her baseline bundle branch she likely would benefit by biventricular pacing/resynchronization and also consideration for even ablation atrial flutter ablation could be also made. These issues were clearly discussed with patient's and the son as well. At this point, they are not decided whether they wanted to have these procedures done here in [place] versus going back to [place]. We gave them both options, will decide by the afternoon. For now, keep her n.p.o. for that. She has history of intracranial bleeds and had Watchman procedure in place per history notes, still maintains good closure of the appendage. For now, no anticoagulation planned and she may be limited candidate for left atrial ablation procedures, hence the history of intracranial bleed. Routine heart rate was measured as per Dr. Casrto. Thank you for allowing me to participate in the care of this patient. JUSTIN
[2017-08-01] MEDS: Doxycycline 100 MG CAP PO SCH ×2 (12:08→21:54)
[2017-08-01] MEDS: Clopidogrel Bisulfate 75 MG TAB PO SCH (12:08)
[2017-08-01] MEDS: Famotidine 20 MG TAB PO SCH (12:08)
[2017-08-01] MEDS: Amiodarone 200 MG TAB PO SCH (12:08)
[2017-08-01] MEDS: Aspirin 81 mg Enteric Coated Tablet PO SCH (12:08)
[2017-08-01] MEDS: Metoprolol Tartrate 25 MG TAB PO SCH ×2 (12:09→21:54)
[2017-08-01] MEDS ORDERED: PROPOFOL 200 MG/20 ML VIAL ONE ×2 (13:15→13:16)
[2017-08-01] MEDS ORDERED: Glycopyrrolate 0.2 MG/ML 5 ML SYRINGE ONE (13:15)
[2017-08-01] MEDS ORDERED: Iopamidol 370 76% 50 ML VIAL FS ONE (13:34)
[2017-08-01] MEDS ORDERED: Lidocaine 1% (PF) 30 ML VIAL ONE ×2 (15:23→17:10)
[2017-08-01] MEDS ORDERED: Sodium Chloride 0.9% 10 ML ONE (15:23)
[2017-08-01] MEDS ORDERED: Midazolam HCl 2 mg/2 ml Vial ONE (15:58)
[2017-08-01] MEDS ORDERED: Ketamine 50 MG/ML VIAL ONE (15:58)
[2017-08-01] MEDS ORDERED: Heparin 10,000 UNITS/1 ML VIAL ONE (16:05)
[2017-08-01] MEDS ORDERED: CEFAZOLIN/Water 2 GM/20 ML SYRINGE ONE (17:24)
[2017-08-01] MEDS: Simvastatin 20 MG TAB PO SCH (21:54)
[2017-08-01] MEDS: Acetaminophen/Codeine 30-300mg Tablet PO PRN (22:03)
--- NOTE | 2017-08-01 22:49 | PDOC.PN ---
- Subjective Encounter Start Date: 08/01/17 Encounter Start Time: 18:30 Patient seen and examined. No new complaints. No overnight events - Objective Resuscitation Status: Resuscitation Status FULL:Full Resuscitation MAR Reviewed: Yes Vital Signs & Weight: Vital Signs (12 hours) Temp Pulse Resp BP Pulse Ox 08/01/17 15:41 97.6 F 74 16 147/83 H 97 08/01/17 11:37 97.4 F L 61 16 144/68 H 98 Weight Weight 144 lb 12.8 oz I&O: 07/31/17 08/01/17 08/02/17 06:59 06:59 06:59 Intake Total 1300 610 Balance 1300 610 Result Diagrams: 08/02/17 05:11 08/02/17 05:11 Additional Labs: Accuchecks 08/01/17 08/01/17 08/01/17 20:47 11:14 05:45 POC Glucose 141 H 112 H 134 H EKG Reviewed by me: Yes (Tele paced) Phys Exam - Physical Examination Constitutional: NAD Respiratory: no wheezing, no rhonchi Cardiovascular: RRR, no rub Gastrointestinal: soft, non-tender, positive bowel sounds Musculoskeletal: no edema Neurological: non-focal, moves all 4 limbs Psychiatric: A&O x 3 Dx/Plan - Plan DVT proph w/SCDs IMPRESSION: 1. Acute hypoxic respiratory failure due to Acute on chronic systolic heart failure exacerbation 2. Atrial flutter with RVR - s/p CV and Ablation/AICD upgrade. 3. CAD s/p [place]/CABG 4. HTN 5. DM2 /CKD 3/ Other issues per H&P PLAN: * EP/Cardio following * s/p AICD upgrade * Cont current meds as below * Cont to monitor * Will hold ACEI/ARB/Aldactone due to CKD * Will also hold changing Metoprolol tartarate to succinate for now. Will let primary Miter Saw Operator make further medication adjustment as outpatient. Review of Systems - Review of Systems Respiratory: negative: Cough, Dry, Shortness of Breath, Hemoptysis, SOB with Excertion, Pleuritic Pain, Sputum, Wheezing Cardiovascular: negative: chest pain, palpitations, orthopnea, paroxysmal nocturnal dyspnea, edema, light headedness, other - Medications/Allergies Allergies/Adverse Reactions: Allergies Allergy/AdvReac Type Severity Reaction Status Date / Time dabigatran etexilate Allergy Verified 07/29/17 09:35 [From Pradaxa] Medications: Current Medications Acetaminophen (Tylenol) 1,000 mg PO Q6H PRN PRN Reason: Headache/Fever or Mild Pain Acetaminophen/Codeine Phosphate (Tylenol #3) 1 tab PO Q3H PRN PRN Reason: Mild-Moderate Pain (1-6) Last Admin: 08/01/17 22:03 Dose: 1 tab Amiodarone HCl (Cordarone) 200 mg PO DAILY [facility] Last Admin: 08/01/17 12:08 Dose: Not Given Aspirin (Ecotrin) 81 mg PO DAILY [facility] Last Admin: 08/01/17 12:08 Dose: Not Given Clonidine (Catapres) 0.1 mg PO Q4H PRN PRN Reason: Systolic BP > 180 Clopidogrel Bisulfate (Plavix) 75 mg PO DAILY [facility] Last Admin: 08/01/17 12:08 Dose: Not Given Dextrose/Water (Dextrose 50%) 25 gm SLOW IVP PRN PRN PRN Reason: Hypoglycemia Diltiazem HCl (Cardizem) 30 mg PO Q6H PRN PRN Reason: HR >120 sustained Doxycycline Hyclate (Vibramycin) 100 mg PO BID [facility] Last Admin: 08/01/17 21:54 Dose: 100 mg Famotidine (Pepcid) 20 mg PO DAILY [facility] Last Admin: 08/01/17 12:08 Dose: Not Given Glucagon (Glucagon) 1 mg IM PRN PRN PRN Reason: Hypoglycemia Hydralazine HCl (Apresoline) 10 mg SLOW IVP Q4H PRN PRN Reason: Systolic BP > 180 Dextrose/Water (D5w) 1,000 mls @ 0 mls/hr IV .Q0M PRN; As Directed PRN Reason: Hypoglycemia Insulin Human Lispro (Humalog) 0 units SC .MILD SLIDING SCALE PRN PRN Reason: Mild Correctional Scale Insulin Human Lispro (Humalog) 0 units SC .BEDTIME SLIDING SC PRN PRN Reason: Bedtime Correctional Scale Isosorbide Mononitrate (Imdur Er) 30 mg PO DAILY [facility] Last Admin: 08/01/17 12:08 Dose: Not Given Levothyroxine Sodium (Synthroid) 75 mcg PO 0600 [facility] Last Admin: 08/01/17 05:21 Dose: 75 mcg Metoprolol Tartrate (Lopressor) 50 mg PO BID [facility] Last Admin: 08/01/17 21:54 Dose: 50 mg Ondansetron HCl (Zofran Odt) 4 mg PO Q6H PRN PRN Reason: Nausea/Vomiting Ondansetron HCl (Zofran) 4 mg IVP Q6H PRN PRN Reason: Nausea/Vomiting Polyethylene Glycol (Miralax) 17 gm PO DAILY PRN PRN Reason: Constipation Simvastatin (Zocor) 20 mg PO HS [facility] Last Admin: 08/01/17 21:54 Dose: 20 mg Sodium Chloride (Flush - Normal Saline) 10 ml IVF Q12HR [facility] Last Admin: 08/01/17 21:54 Dose: 10 ml Sodium Chloride (Flush - Normal Saline) 10 ml IVF PRN PRN PRN Reason: Saline Flush
--- NOTE | 2017-08-02 02:28 | OP ---
ELECTROPHYSIOLOGY STUDY AND RADIOFREQUENCY ABLATION REPORT DATE OF PROCEDURE: 08/01/2017 REFERRING PHYSICIAN: Danya Castro M.D. REASON FOR PROCEDURE: Ms. Castellanos is a 77-year-old female with a history of hemorrhagic stroke and Watchman device in place. She had history of atrial fibrillation for which she received amiodarone, but had recurrent atrial flutters as well. She underwent a cardioversion this morning restoring sinus rhythm, but for long-term suppression for atrial arrhythmias plan is to proceed with AV eric ablation, possible flutter ablation and biventricular pacemaker upgrade after that. Her LVEF has decreased to the 20% range on this current hospitalization. We expecting her LV function improved with rate control. PROCEDURE IN DETAIL: The patient received deep sedation by Anesthesia specialist. After adequate level of sedation was achieved, the right femoral venous area was prepped, draped, and anesthetized using subcutaneous lidocaine and with ultrasound guidance, the right femoral vein was cannulated x2. A Decapolar catheter was advanced to the right ventricle, His bundle, right atrial position and eventually into the CS. Pacing, mapping, and recording were performed in each location. The baseline cycle length was 90 milliseconds sinus rhythm, QRS 138 milliseconds, QT 59 milliseconds, left bundle branch block pattern is seen. HV was 54 milliseconds. Atrial pacing was noted. The AV Wenckebach cycle length was less than 360 milliseconds. The burst atrial pacing induced atrial flutter which appear to be typical and isthmus dependent morphology. The proximal CS poles had shorter post-pacing intervals on overdrive pacing, then the mid CS poles. Following that a bidirectional SF catheter was advanced to the right atrium. Cavotricuspid isthmus ablation was performed. Multiple atrial flutter morphology, though were identified during the ablation which were not isthmus dependent eventually cardioversion restored sinus rhythm. At this point, we proceeded with AV eric ablation. The His bundle was delineated and ablation approximately to the AV node was performed eventual rhythm was complete AV block with ventricular pacing. This persisted for the duration of the case and it was remained complete AV block, after the pacemaker upgrade also performed. Following that, the cine demonstrated no change in cardiac silhouette. The patient remained stable. The sheaths were left in place and pulled after the BiV pacemaker upgrade, please see separate report. The patient left the microbiology lab manager. She did regain consciousness. No complication noted. CONCLUSION: 1. Typical atrial flutter and also left atrial flutter was induced. 2. Cavotricuspid isthmus ablation performed. 3. AV eric ablation could result in complete AV block. 4. Plan to proceed with BiV pacemaker upgrade. Monitor for improvement in LV function. If LVEF remains less than 35% after rate control consider BiV ICD upgrade in the future. MTDD
[2017-08-02] MEDS: Acetaminophen/Codeine 30-300mg Tablet PO PRN (05:25)
[2017-08-02 05:43] LABS: #Eosinphils 0.2 thou/uL (0.0-0.7); #Lymphocytes 0.8 thou/uL (1.20-3.40); #Monocytes 0.5 thou/uL (0.11-0.59); #Neutrophils 6.1 thou/uL (1.40-6.50); %Basophils 0.5 % (0.0-1.0); %Eosinophils 2.1 % (0.0-10.0); %Lymphocytes 10.9 % (21.0-51.0); %Monocytes 6.3 % (0.0-10.0); %Neutrophils 80.1 % (42.0-75.0); Hemoglobin 12.2 g/dL (12.0-16.0); Mean Corpuscular HGB CONC 32.6 g/dL (32.0-36.0); Mean Corpuscular Hemoglobin 31.4 pg (27.0-31.0); Mean Corpuscular Volume 96.3 fl (81.0-99.0); Mean Platelet Volume 8.6 fL (7.4-10.4); Platelet Count 230 thou/uL (130-400); RBC Distribution Width 12.9 % (11.5-14.5); Red Blood Cell (RBC) Count 3.88 mill/uL (4.20-5.40); White Blood Cell (WBC) Count 7.6 thou/uL (4.8-10.8)
[2017-08-02 05:55] LABS: Anion Gap 15 mmol/L (10-20); BUN (Urea Nitrogen) 22 mg/dL (9.8-20.1); Calc. Creatinine Clearance 51 mL/min (70-130); Calcium 8.7 mg/dL (7.8-10.44); Carbon Dioxide 19 mmol/L (23-31); Chloride 108 mmol/L (98-107); Estimated GFR-MDRD 56; Glucose 92 mg/dL (83-110); Magnesium 1.7 mg/dL (1.6-2.6); Potassium 3.8 mmol/L (3.5-5.1); Sodium 138 mmol/L (136-145)
[2017-08-02] MEDS: Levothyroxine Sodium 75 MCG TAB PO SCH (07:13)
--- NOTE | 2017-08-02 08:17 | RAD ---
UPRIGHT PORTABLE CHEST 1 VIEW: HISTORY: A 77-year-old female with PM upgrade, followup pneumonia and congestive heart failure. Followup dysp cassidy. COMPARISON: 07/30/17. FINDINGS: Postop midline sternotomy. Monitor leads overlie the chest. Left ICD. Overall stable increased staci ear and interstitial markings bilaterally somewhat more prominent in the right upper lobe with some b lunting and indistinction of both costophrenic angles. No new process. IMPRESSION: Stable increased linear and interstitial markings bilaterally. Stable biapical pleural thickening. No new confluent pneumonia or overt edema. Continue short-term followup for clearing or stability. POS: OFF
--- NOTE | 2017-08-02 08:36 | PDOC.CTH ---
Addendum entered and electronically signed by Debbie Calderón NP 08/02/17 09: 02: 08/02/17 AM CXR stable, no pneumothorax or new acute processes. Left precordial implant site has mild swelling & bruising as expected post operatively. No hematoma, drainage, or signs of complication. Original Note: <Debbie Calderón - Last Filed: 08/02/17 08:35> Cardiology Progress Note - Subjective EP progress note: Patient seen and evaluated. Rested well overnight and other than some mild discomfort at implant site, she has no concerns or complaints today. No pain or tenderness at right groin site. - Objective Vital Signs Temp Pulse Resp BP BP BP Pulse Ox 08/02/17 07:59 97.5 F L 69 16 127/72 98 08/02/17 05:00 125/74 110/62 127/70 08/02/17 03:34 97.4 F L 70 16 124/75 97 08/01/17 23:48 97.4 F L 69 16 139/74 99 Weight 151 lb 08/01/17 08/02/17 08/03/17 06:59 06:59 06:59 Intake Total 610 300 Balance 610 300 - Physical Examination General/Neuro: alert & oriented x3, NAD Neck: carotid US brisk, no JVD present Lungs: unlabored respirations Heart: PMI normal, RRR Abdomen: NT/ND, soft - Telemetry Telemetry Rhythm: NSR with ORAL AND MAXILLOFACIAL SURGERY pacing - Labs Result Diagrams: 08/02/17 05:11 08/02/17 05:11 Troponin/CKMB CK-MB (CK-2) 2.4 ng/mL (0-6.6) 07/29/17 02:54 Troponin I Less than 0.010 ng/mL (< 0.028) 07/29/17 02:54 - Assessment/Plan 1. Atrial fibrillation & flutter, refractory to amiodarone with two prior DCCV ( 05/2017 and 06/2017) s/p CTI and AV node ablation 08/01/17. 2. Cardiomyopathy- EF 15-20%, previously 40-45% in August 2016 3. Congestive heart failure- better compensated after diureses. 4. Acute respiratory failure- resolving 5. Left atrial appendage closed with Watchman in past, no OAC needed. Remain on ASA 81mg daily. 6. Inclusion of Bi-V PPM, upgrade from dual chamber performed 08/01/17. Prescription for post implant antibiotics on chart. Wound check in clinic in 7- 10 days Considering her low EF and the risk for ventricular arrhthmias, I will continue her Amiodarone on maintenance dose of 200mg daily until EF is reassessed. Recommend reevaluate LV function in 2 months as she is now rate controlled and patient is benefitting from cardiac resynchronization therapy pacing. If EF remains <35% we will discuss upgrading to ICD. However, I suspect her cardiomyopathy is tachycardia mediated and will likely recover now that rates are controlled. OK for discharge by EP. Requested follow up with [facility] or her EP in [place], per patient preference. Wound check in clinic in 7-10 days. Prescription for post implant antibiotics on chart. <Chris Echevarria - Last Filed: 08/02/17 17:01> Cardiology Progress Note - Objective Vital Signs Temp Pulse Resp BP Pulse Ox 08/02/17 11:38 97.7 F 69 16 101/62 97 08/02/17 08:00 97.7 F 69 16 98 08/02/17 07:59 97.5 F L 69 16 127/72 98 Weight 151 lb 08/01/17 08/02/17 08/03/17 06:59 06:59 06:59 Intake Total 610 300 Balance 610 300 - Labs Result Diagrams: 08/02/17 05:11 08/02/17 05:11 Troponin/CKMB CK-MB (CK-2) 2.4 ng/mL (0-6.6) 07/29/17 02:54 Troponin I Less than 0.010 ng/mL (< 0.028) 07/29/17 02:54 Attending Addendum - Attending Addendum Date/Time: 08/02/17 1700 I personally evaluated the patient and discussed the management with Ms Calderón. I agree with the History, Examination, Assessment and Plan documented above with any addition or exceptions noted below.
[2017-08-02] MEDS: Clopidogrel Bisulfate 75 MG TAB PO SCH (08:55)
[2017-08-02] MEDS: Amiodarone 200 MG TAB PO SCH (08:55)
[2017-08-02] MEDS: Aspirin 81 mg Enteric Coated Tablet PO SCH (08:55)
[2017-08-02] MEDS: Famotidine 20 MG TAB PO SCH (08:55)
[2017-08-02] MEDS: Doxycycline 100 MG CAP PO SCH (08:55)
[2017-08-02] MEDS: Metoprolol Tartrate 25 MG TAB PO SCH (08:56)
[2017-08-02] MEDS: Cephalexin 250 MG CAP PO SCH ×2 (09:30→13:26)
[2017-08-02 11:39] VITALS: BP 101/62; TEMP 97.7
--- NOTE | 2017-08-02 14:07 | EKG ---
Test Reason : Blood Pressure : / mmHG Vent. Rate : 070 BPM Atrial Rate : 070 BPM P-R Int : 168 ms QRS Dur : 144 ms QT Int : 486 ms P-R-T Axes : 089 -72 090 degrees QTc Int : 524 ms AV sequential or dual chamber electronic pacemaker When compared with ECG of 29-JUL-2017 02:34, (Unconfirmed) Electronic ventricular pacemaker has replaced Sinus rhythm Vent. rate has decreased BY 43 BPM Confirmed by DANUTA QIU ([id number]) on 08/02/2017 2:06:44 PM Referred By: CARMELITA Confirmed By:DANUTA QIU
--- NOTE | 2017-08-03 08:49 | DIS ---
DATE OF DISCHARGE: 08/02/2017 DISCHARGE DISPOSITION: Home. FOLLOWUP: 1. Follow up with primary care physician, Dr. Heidi Bassett in [place]. 2. Heart failure clinic. 3. Follow up with Electrophysiology, Dr. Echevarria as scheduled. ALLERGIES: The patient is allergic to XARELTO due to intracranial bleeding in the past. DISCHARGE MEDICATION: 1. Keflex 500 mg every 6 hourly for 1 week. 2. Metoprolol tartrate, dose has been increased to 50 mg b.i.d. 3. All other home medications were resumed. 4. Amlodipine has been discontinued. The patient was seen and examined on the day of discharge. Denies any new complaints, no chest pain, shortness of breath or palpitation. BRIEF HOSPITAL COURSE: The patient is a 77-year-old female with coronary artery disease, diabetes me llitus type 2, hypertension, and atrial fibrillation, status post Watchman procedure, presented to [facility] emergency room with shortness of breath. Please refer to the history and physical dated 07/29/2017 for further details. The patient was admitted to the hospital with a diagnosis of acute hypoxic respiratory failure second valerie to congestive heart failure exacerbation. Her echocardiogram showed ejection fraction of 15-20% with severe mitral regurgitation, left ventricular dilatation, and global hypokinesis. She showed go od improvement with diuretics. Initially, there was a concern for possible pneumonia; however, a rep eat chest x-ray after diuresis was negative. Patient was seen by electrophysiology, Dr. Echevarria. She u nderwent cardioversion by Dr. Castro. After cardioversion on the same day, the patient underwent cavot ricuspid isthmus and AV eric ablation. Plan is to proceed with biventricular pacemaker upgrade as o utpatient if ejection fraction remains below 35%. Plan of care was discussed with the patient in detail. She stated understanding. FINAL DIAGNOSES: 1. Acute hypoxic respiratory failure secondary to acute on chronic systolic heart failure exacerbati on. 2. Atypical atrial flutter with rapid ventricular response, status post cardioversion and ablation a s discussed above. 3. Coronary artery disease, status post myocardial infarction and coronary artery bypass graft. 4. Hypertension. 5. Diabetes mellitus type 2. 6. Chronic kidney disease stage 3. 7. Pneumonia that was suspected on admission has been ruled out. 8. History of atrial fibrillation. 9. History of intracranial hemorrhage. 10. Hypothyroidism. 11. Hyperlipidemia. 12. History of transient ischemic attack on aspirin and Plavix.
== END 2017-08-02 14:16 | disposition home or self-care (01) | DRG 242 ==
LOC: ERS 02:17 → ERHOLD 04:29 → 2SE 07:01
PROVIDERS: ADMIT Family Medicine; ATTEND Family Medicine
PROC: 4A023FZ Measurement of Cardiac Rhythm, Percutaneous Approach (ICD-10-PCS; principal; 2017-08-01)
PROC: 0JH606Z Insertion of Pacemaker, Dual Chamber into Chest Subcutaneous Tissue and Fascia, Open Approach (ICD-10-PCS; 2017-08-01)
PROC: 02HL3JZ Insertion of Pacemaker Lead into Left Ventricle, Percutaneous Approach (ICD-10-PCS; 2017-08-01)
PROC: 02583ZZ Destruction of Conduction Mechanism, Percutaneous Approach (ICD-10-PCS; 2017-08-01)
PROC: 0JPT0PZ Removal of Cardiac Rhythm Related Device from Trunk Subcutaneous Tissue and Fascia, Open Approach (ICD-10-PCS; 2017-08-01)
PROC: 4A0234Z Measurement of Cardiac Electrical Activity, Percutaneous Approach (ICD-10-PCS; 2017-08-01)
PROC: 02K83ZZ Map Conduction Mechanism, Percutaneous Approach (ICD-10-PCS; 2017-08-01)
PROC: 5A2204Z Restoration of Cardiac Rhythm, Single (ICD-10-PCS; 2017-08-01)
DX: I13.0 Hypertensive heart and chronic kidney disease with heart failure and stage 1 through stage 4 chronic kidney disease, or unspecified chronic kidney disease (principal); J96.01 Acute respiratory failure with hypoxia; I44.2 Atrioventricular block, complete; I48.2 Chronic atrial fibrillation; I48.3 Typical atrial flutter; E11.22 Type 2 diabetes mellitus with diabetic chronic kidney disease; I25.5 Ischemic cardiomyopathy; I25.10 Atherosclerotic heart disease of native coronary artery without angina pectoris; I50.23 Acute on chronic systolic (congestive) heart failure; I25.2 Old myocardial infarction; Z95.1 Presence of aortocoronary bypass graft; Z95.0 Presence of cardiac pacemaker; Z79.01 Long term (current) use of anticoagulants; Z79.82 Long term (current) use of aspirin; Z86.73 Personal history of transient ischemic attack (TIA), and cerebral infarction without residual deficits; E03.9 Hypothyroidism, unspecified; E78.5 Hyperlipidemia, unspecified; Z79.4 Long term (current) use of insulin; Z87.891 Personal history of nicotine dependence; I44.7 Left bundle-branch block, unspecified; Z88.8 Allergy status to other drugs, medicaments and biological substances; I34.0 Nonrheumatic mitral (valve) insufficiency; N18.3 Chronic kidney disease, stage 3 (moderate)
CPT/HCPCS: 33225; 36005; 36415; 36416; 71045; 71046; 75820; 76942; 80048; 80053; 82553; 83605; 83735; 83880; 84100; 84439; 84443; 84484; 85007; 85025; 85027; 85379; 87040; 92960; 93005; 93010; 93306; 93609; 93650; 93653; 93798; 96365; 96367; 96375; A4216; C1769; C1882; C1900; C2630; J0696; J1160; J1644; J1940; J1956; J2001; J2250; J2543; J2704; J3370; J3490